=== PATIENT | male | born 1995 | race Caucasian/White ===

== ENCOUNTER 2019-11-01 15:32 | Emergency (ER) | payer BC, SELFPAY ==
[2019-11-01 15:38] VITALS: BP 141/75; PULSE 106; RESP 20; TEMP 36.9; O2SAT 99
--- NOTE | 2019-11-01 15:58 | ED.URI ---
HPI - URI/Sore Throat General Chief Complaint: Upper Respiratory Infection Stated Complaint: sore throat Source: patient Mode of arrival: ambulatory Limitations: no limitations History of Present Illness HPI Narrative: Patient is a 24-year-old male who presents complaining of sore throat x2 days. He is unaware if he has had fever, he has had intermittent chills and mild body aches. He denies cough, nausea, vomiting, or diarrhea. He denies taking [id number] medications for symptom relief at this time. elicited complaint: sore throat Related Data Home Medications Medication Instructions Recorded Confirmed sertraline 150 mg PO DAILY 11/01/19 11/01/19 Allergies Allergy/AdvReac Type Severity Reaction Status Date / Time morphine Allergy Severe Anaphylactic Verified 11/01/19 15:43 Shock Review of Systems Review of Systems: Narrative: CONSTITUTIONAL: Denies fever, chills, or sweats. EYES: Denies visual changes, redness, or discharge. ENT: Denies rhinorrhea, congestion, or otalgia. Reports sore throat x2 days CARDIOVASCULAR: Denies chest pain, palpitations, or edema. RESPIRATORY: Denies cough or dyspnea. GASTROINTESTINAL: Denies abdominal pain, nausea, vomiting, or diarrhea. GENITOURINARY: Denies dysuria or hematuria. SKIN: Denies rash or itching. MUSCULOSKELETAL: Denies back pain, joint pain, or myalgia. NEUROLOGIC: Denies headache, numbness, dizziness, or weakness. PSYCHIATRIC: Denies anxiety or depression. [facility] Family History Family History Father Hypertension Mother Patient's mother is in good health Social History Social History Smoking status: Light tobacco smoker Second hand tobacco smoke exposure: No Alcohol intake: never Exam Narrative: Exam Narrative: GENERAL: Well-appearing, well-nourished, and in no acute distress. HEAD: Normocephalic, atraumatic. EYES: EOMI. No redness or drainage. Conjunctiva are normal. ENT: Mucous membranes pink and moist. Nares clear. No rhinorrhea. TMs normal bilaterally. Throat erythema and edema, mild cervical adenopathy. Uvula midline. NECK: AROM. Supple. No lymphadenopathy. CHEST: No respiratory distress. Clear to auscultation. HEART: Regular rate and rhythm. No murmur appreciated. Normal peripheral pulses. NEURO: No focal deficits. Alert and oriented x3. Gait steady. PSYCH: Normal affect. No signs of depression or anxiety. Course Vital Signs Vital signs: Vital Signs Temperature 36.9 C 11/01/19 15:38 Pulse Rate 106 H 11/01/19 15:38 Respiratory Rate 20 11/01/19 15:38 Blood Pressure 141/75 H 11/01/19 15:38 Pulse Oximetry 99 11/01/19 15:38 Temperature 36.9 C 11/01/19 15:38 Pulse Rate 106 H 11/01/19 15:38 Respiratory Rate 20 11/01/19 15:38 Blood Pressure 141/75 H 11/01/19 15:38 Pulse Oximetry 99 11/01/19 15:38 Reviewed. Patient has been instructed to follow-up with his PCP regarding his blood pressure. MDM - URI/Sore Throat MDM Narrative Medical decision making narrative: Patient's rapid strep was negative. Patient most likely has viral pharyngitis. Discussed plan of care with patient. Patient is stable for discharge to home with outpatient follow-up as needed. From Differential Diagnosis Differential diagnosis: Likely pharyngitis Critical Care Time Critical Care Time Critical Care Time: No Discharge Plan Discharge Clinical Impression: Pharyngitis Patient Disposition: Home, Self-Care Condition: Stable Instructions: Pharyngitis (ED) Additional Instructions: Take medication as directed. Continue to stay well-hydrated. If you are unable to swallow or maintain use secretions, please go to the emergency department for further evaluation. Your blood pressure was elevated above 120/80 today at [facility]. This puts you above the threshold for follow-up. Please schedule follow-u
== END 2019-11-01 16:04 | disposition home or self-care (01) ==
PROVIDERS: Emergency Provider Nurse Practitioner; PCP Family Medicine
DX: J02.9 Acute pharyngitis, unspecified (principal); F17.200 Nicotine dependence, unspecified, uncomplicated
CPT/HCPCS: 87081; 87880; 99213; G0463

== ENCOUNTER 2021-07-16 13:01 | Emergency (ER) | payer OTHER, SELFPAY ==
--- NOTE | ~2021-07-16 | XR_ITS ---
EXAMINATION: XR chest 2V 07/16/2021 13:43 INDICATION: Chest pain PROCEDURE: 2 view chest COMPARISON: 09/15/2014 FINDINGS: The lungs are clear. The cardiomediastinal silhouette is within normal limits. There are no pleural effusions. There is no pneumothorax suspected. IMPRESSION: 1: NO ACUTE CARDIOPULMONARY DISEASE. Reviewed, dictated and finalized at location B.
--- NOTE | 2021-07-16 13:15 | ECG_ITS ---
Measurements Intervals [place] Rate: 103 P: 46 ID: 142 QRS: 43 QRSD: 92 T: 0 QT: 314 QTc: 412 Interpretive Statements SINUS TACHYCARDIA BORDERLINE ST-T WAVE ABNORMALITY- INFERIOR LEADS BORDERLINE ECG Electronically Signed On 07-16-2021 14:34:46 CDT by Pete Tyler D.O.
[2021-07-16 13:26] VITALS: BP 150/94; PULSE 98; RESP 14; TEMP 36.1; O2SAT 99
[2021-07-16 13:31] LABS: Basophils Percent Auto 0.5 % (0.2-1.2); Eosinophils Absolute Auto 0.1 K/mm3 (0-0.3); Eosinophils Percent Auto 2.5 % (0-4.4); Hematocrit 46.6 % (42.0-52.0); Immature Granulocyte Absolute 0.04 K/mm3 (0.00-0.031); Immature Granulocyte Percent A 0.7 % (0-0.5); Lymphocytes Absolute Auto 1.41 K/mm3 (0.9-3.2); Lymphocytes Percent Auto 25.6 % (18.3-44.2); Mean Corpuscular HGB Conc 34.3 g/dl (32-36); Mean Corpuscular Volume 78.7 fl (80-100); Mean Platelet Volume 8.1 fl (7.4-10.4); Monocytes Absolute Auto 0.5 K/mm3 (0.1-0.6); Monocytes Percent Auto 9.1 % (2.6-8.5); Neutrophils Absolute Auto 3.4 K/mm3 (1.3-6.7); Neutrophils Percent Auto 61.6 % (45.5-73.1); Platelet Count Result 189 k/mm3 (150-375); Red Blood Count 5.92 M/mm3 (4.6-6.20); Red Cell Distribution Width 13.4 % (11.5-14.5); White Blood Count 5.5 K/mm3 (4.5-10.0)
[2021-07-16 13:46] LABS: Anion Gap 10 mmol/L (8-16); Blood Urea Nitrogen 13 mg/dL (9-20); Carbon Dioxide 28 mmol/L (22-30); Chloride 101 mmol/L (98-107); Estimated CRCL calculation 176 ml/min; Estimated Glomerular Filt Rate > 60; Glucose 110 mg/dL (65-110); Potassium 4.3 mmol/L (3.4-5.0); Sodium 139 mmol/L (137-145)
[2021-07-16 13:51] LABS: INR 0.9; Prothrombin Time 12.1 Seconds (11.1-14.7)
[2021-07-16 13:52] LABS: Partial Thromboplastin Time 25.9 SECONDS (22.3-36.8)
[2021-07-16 13:54] VITALS: BP 139/85; PULSE 90; RESP 14; O2SAT 100
[2021-07-16] MEDS: ASPIRIN 81 MG CHEWABLE TABLET 324 MG PO (13:56)
[2021-07-16 13:58] LABS: Troponin I < 0.012 ng/mL (0.000-0.034)
--- NOTE | 2021-07-16 14:37 | ED.GENADULT ---
HPI - General Adult General Chief complaint: Arrhythmia/Palpitations Stated complaint: vibrating in chest/nausea Time Seen by Provider: 07/16/21 13:42 History of Present Illness HPI narrative: Patient is a 25-year-old male who presents ER with concerns for heart palpitations. Reports he has been feeling fluttering in the left upper part of his chest that is very localized. Last for seconds. If he places his hand there he can sometimes feel it. No difficulty breathing. No nausea or vomiting. Denies fevers or chills or sweats. No history of heart arrhythmia. No new medications. Related Data Home Medications Medication Instructions Recorded Confirmed sertraline 150 mg PO DAILY 11/01/19 11/01/19 Allergies Allergy/AdvReac Type Severity Reaction Status Date / Time morphine Allergy Severe Anaphylactic Verified 11/01/19 15:43 Shock Review of Systems Review of Systems: All systems reviewed & are unremarkable except as noted in HPI and below Constitutional: Constitutional: Denies chills, Denies fever(s) and Denies weakness ENT: Denies nasal congestion and Denies sore throat Cardiovascular: Cardiovascular: Denies chest pain, Reports rapid heart rate and Denies radiating jaw, neck or arm pain Respiratory: Respiratory: Denies cough, Denies dyspnea and Denies wheezing Gastrointestinal: Gastrointestinal: Denies abdominal pain, Denies nausea and Denies vomiting Musculoskeletal: Musculoskeletal: Denies myalgias and Denies muscle cramps Neurologic: Denies syncope, Denies focal weakness and Denies numbness PMFSH Past Medical History Medical History (Updated 07/16/21 @ 16:37 by Dick Morales MD) Anxiety Depression Surgical History Surgical History (Updated 07/16/21 @ 14:45 by Dick Morales MD) History of appendectomy Hx of tonsillectomy Family History Family History Father Hypertension Mother Patient's mother is in good health Social History Social History Smoking status: Light tobacco smoker Second hand tobacco smoke exposure: No Alcohol intake: never Exam Narrative: GENERAL: Well-appearing, well-nourished, and in no acute distress. HEAD: Normocephalic, atraumatic. ENT: Mucous membranes moist. CHEST: Clear to auscultation. No respiratory distress. HEART: Regular rate and rhythm. Normal peripheral pulses. ABDOMEN: Soft, nontender, nondistended. EXTREMITIES: Normal range of motion. No edema. SKIN: Warm, dry, no rash. NEURO: Alert and oriented x3. PSYCH: Normal mood and affect. Course Course Emergency Course: Symptoms seem more likely related to muscle fasciculations anxiety than true chest pain. Discharge home. Vital Signs Vital signs: Vital Signs Temperature 97.0 F L 07/16/21 13:26 Pulse Rate 98 07/16/21 13:26 Respiratory Rate 14 07/16/21 13:26 Blood Pressure 150/94 H 07/16/21 13:26 Pulse Oximetry 99 07/16/21 13:26 Temperature 97.0 F L 07/16/21 13:26 Pulse Rate 90 07/16/21 13:54 Respiratory Rate 14 07/16/21 13:54 Blood Pressure 139/85 07/16/21 13:54 Pulse Oximetry 100 07/16/21 13:54 Medical Decision Making Vital Signs Vital Signs: Vital Signs Temperature 97.0 F L 07/16/21 13:26 Pulse Rate 98 07/16/21 13:26 Respiratory Rate 14 07/16/21 13:26 Blood Pressure 150/94 H 07/16/21 13:26 Pulse Oximetry 99 07/16/21 13:26 Temperature 97.0 F L 07/16/21 13:26 Pulse Rate 90 07/16/21 13:54 Respiratory Rate 14 07/16/21 13:54 Blood Pressure 139/85 07/16/21 13:54 Pulse Oximetry 100 07/16/21 13:54 Lab Data Result diagrams: 07/16/21 13:24 07/16/21 13:24 Labs: Lab Results 07/16/21 07/16/21 07/16/21 Range/Units 13:24 13:24 13:24 WBC 5.5 (4.5-10.0) K/mm3 RBC 5.92 (4.6-6.20) M/mm3 Hgb 16.0 (14.0-18.0) g/dL Hct 46.6 (42.0-52.0) % MCV 78.7
[2021-07-16 16:42] LABS: Troponin I < 0.012 ng/mL (0.000-0.034)
[2021-07-16 16:49] VITALS: BP 116/85; PULSE 90; RESP 21; O2SAT 98
== END 2021-07-16 16:50 | disposition home or self-care (01) ==
PROVIDERS: Emergency Provider Emergency Medicine; PCP Nurse Practitioner Family
DX: R00.2 Palpitations (principal); F41.9 Anxiety disorder, unspecified; F32.A Depression, unspecified
CPT/HCPCS: 36415; 71046; 80048; 84484; 85025; 85610; 85730; 93005; 99284; A9270